=== PATIENT | male | born 1990 | race Caucasian/White ===

== ENCOUNTER 2024-05-10 04:30 | Emergency (ER) | payer MEDICAID ==
[~2024-05-10] VITALS: Ht 170.2 cm; Wt 118.2 kg
[2024-05-10 04:32] VITALS: TEMP 98.3
[2024-05-10] MEDS ORDERED: IBUPROFEN 600 MG TABLET PO ONE (05:00)
[2024-05-10] MEDS ORDERED: METHOCARBAMOL 500 MG TABLET PO ONE (05:00)
[2024-05-10] MEDS ORDERED: ACETAMINOPHEN 500 MG TABLET PO ONE (05:00)
[2024-05-10 05:42] LABS: BASOPHILS % (AUTO) 0.4 % (0.0-2.0); HEMATOCRIT 38.5 % (41-53); HEMOGLOBIN 13.4 g/dL (13.5-17.5); LYMPHOCYTES # (AUTO) 1.4 K/uL (1.0-4.8); LYMPHOCYTES % (AUTO) 17.1 % (22.0-44.0); MEAN CORPUSCULAR HEMOGLOBIN 29.1 pg (26.0-34.0); MEAN CORPUSCULAR HGB CONC 34.8 G/dL (31.0-37.0); MEAN CORPUSCULAR VOLUME 84 fL (80-100); MONOCYTES # (AUTO) 0.6 K/uL (0.1-1.0); MONOCYTES % (AUTO) 7.6 % (2.0-9.0); NEUTROPHILS # (AUTO) 5.8 K/uL (1.8-7.7); NEUTROPHILS % (AUTO) 72.9 % (40.0-70.0); PLATELET COUNT (AUTO) 167 K/uL (150-450); RED CELL DISTRIBUTION WIDTH 13.2 % (11.5-14.5)
[2024-05-10 05:51] LABS: ANION GAP 5 mmol/L (8-16); CALCIUM, TOTAL 8.9 mg/dL (8.8-10.5); CARBON DIOXIDE 29 mmol/L (22-29); CHLORIDE 106 mmol/L (98-107); CREATININE 1.25 mg/dL (0.60-1.30); GLOMERULAR FILTR. RATE CALC > 60 mL/min (>60); GLUCOSE,RANDOM 111 mg/dL (70-110); SODIUM SERUM 140 mmol/L (136-145); UREA NITROGEN, BLOOD 17 mg/dL (7-18)
[2024-05-10 05:59] LABS: LACTIC ACID 0.8 mmol/L (0.4-2.0)
[2024-05-10] MEDS: LORazepam 2 MG/ML VIAL IVP ONE (07:19)
[2024-05-10] MEDS: METHOCARBAMOL 100 MG/ML 10 ML VIAL IVP ONE (07:20)
[2024-05-10 08:17] VITALS: BP 147/96; PULSE 79; RESP 16
[2024-05-10] MEDS ORDERED: IBUP-1492 PO (10:12)
[2024-05-10] MEDS ORDERED: CYCL-448 PO (10:12)
[2024-05-10] MEDS: KETOROLAC TROMETHAMINE 30 MG/ML VIAL IM ONE (10:31)
== END 2024-05-10 10:43 | disposition left against medical advice (07) ==
LOC: EMS 04:30
DX: R20.2 Paresthesia of skin (principal); M50.20 Other cervical disc displacement, unspecified cervical region; M79.18 Myalgia, other site; J45.909 Unspecified asthma, uncomplicated; Z53.29 Procedure and treatment not carried out because of patient's decision for other reasons
CPT/HCPCS: 99285; 72125; 80048; 83605; 85025; 36415; 72040; 72070; 96372; J1885; J2060; J2800